=== PATIENT | female | born 1990 | race Caucasian/White ===

== ENCOUNTER 2021-11-01 20:33 | Emergency (ER) | payer MEDICAID ==
[~2021-11-01] VITALS: Ht 162.6 cm; Wt 54.0 kg
--- NOTE | 2021-11-01 21:00 | NUR ---
BIBS FOR R HAND INFECTION, SWELLING, AND PAIN X 1 WEEK. PT A/OX4. TOLERATING R/A WELL WITH NO SOB.
[2021-11-01] MEDS ORDERED: KETOROLAC TROMETHAMINE 15 MG/ML VIAL ONE (21:22)
[2021-11-01] MEDS ORDERED: CLINDAMYCIN PHOSPHATE IV 600 MG/4 ML VIAL ONE (21:22)
[2021-11-01] MEDS ORDERED: KETOROLAC TROMETHAMINE INJ 30 MG/ML VIAL IV ONE (21:30)
[2021-11-01] MEDS ORDERED: ACETAMINOPHEN 325 MG TABLET PO ONE (21:30)
[2021-11-01] MEDS ORDERED: CLINDAMYCIN IV RTU IN D5W 900 MG/50 ML PIGGYBACK IV SCH (21:30)
[2021-11-01] MEDS ORDERED: VANCOMYCIN 1 GM in IV D5W 250 ML IV ONE (21:30)
[2021-11-01] MEDS ORDERED: IV NS 0.9% 1,000 ML BAG IV ONE (21:30)
--- NOTE | 2021-11-01 21:38 | NUR ---
SHRUB GROWER AT PT'S BEDSIDE
[2021-11-01] MEDS ORDERED: ACETAMINOPHEN 325 MG TABLET ONE (21:45)
[2021-11-01] MEDS ORDERED: VANCOMYCIN 1 GM VIAL ONE (21:45)
--- NOTE | 2021-11-01 21:49 | NUR ---
PHOTO LAB TECHNICIAN AT PT'S BEDSIDE
[2021-11-01] MEDS ORDERED: LORAZEPAM INJ 2 MG/ML VIAL IV ONE (22:00)
--- NOTE | 2021-11-01 22:33 | NUR ---
ROOM SERVICE FOOD SERVER AT PT'S BEDSIDE
--- NOTE | 2021-11-01 22:33 | NUR ---
PAGED Dakota GLOVER AT [phone] FOR HAND SURGEON CONSULT
--- NOTE | 2021-11-01 22:45 | NUR ---
ATTMEPTED IV WITH NO SUCCESS; CHARGE NURSE NOTIFIED.
[2021-11-01 22:58] LABS: BASOPHILS # (AUTO) 0.1 K/uL (0.0-0.2); BASOPHILS % (AUTO) 0.6 % (0.0-2.0); EOSINOPHILS % (AUTO) 0.5 % (0.0-6.0); HEMATOCRIT 31 % (33-45); HEMOGLOBIN 10.2 g/dL (11.5-14.8); LYMPHOCYTES # (AUTO) 1.4 K/uL (0.8-4.8); LYMPHOCYTES % (AUTO) 13.5 % (20.0-44.0); MEAN CORPUSCULAR HGB CONC 33 g/dl (31.0-36.0); MEAN CORPUSCULAR VOLUME 78 fL (82-100); MONOCYTES % (AUTO) 9.9 % (2.0-12.0); NEUTROPHILS # (AUTO) 7.7 K/uL (1.8-8.9); NEUTROPHILS % (AUTO) 75.5 % (43.0-81.0); PLATELET COUNT (AUTO) 380 K/uL (150-450); RED BLOOD CELL COUNT(AUTO) 3.92 MIL/uL (4.0-5.2); WHITE BLOOD COUNT (AUTO) 10.2 K/uL (4.3-11.0)
--- NOTE | 2021-11-01 23:00 | NUR ---
CALLED [facility] ER AND SPOKE TO JANE. NO HAND SURGEON ON BOARD
[2021-11-01 23:41] LABS: ALBUMIN 3.4 g/dL (3.4-5.0); BILIRUBIN,DIRECT 0.1 mg/dL (0.0-0.2); BILIRUBIN,TOTAL 0.3 mg/dL (0.2-1.0); TOTAL PROTEIN, SERUM 7.9 g/dL (6.4-8.2)
--- NOTE | 2021-11-02 00:36 | NUR ---
CALLED [facility] TRANSFER [facility] AND SPOKE TO URI FOR POSSIBLE HIGHER LEVEL OF CARE FOR HAND SURGON. PER URI THEY'RE UNABLE TO ACCEPT ANY PT AT THIS TIME SINCE THEY'RE AT [facility]
--- NOTE | 2021-11-02 02:45 | NUR ---
called lyric franklin, no hand surgon
--- NOTE | 2021-11-02 02:58 | NUR ---
CALLED RAMSEY AT [facility]. PER RAMSEY, THEY ARE VERY TIGHT IN BED. FACE SHEET AND CLINICALS WERE FAXED OVER TO [phone]
--- NOTE | 2021-11-02 03:06 | NUR ---
REC'D A CALL FROM RAMSE[facility], NO BED AVAILABLE
--- NOTE | 2021-11-02 03:19 | NUR ---
CALLED [facility]. PER LIDIA THEY'RE AT [facility]
--- NOTE | 2021-11-02 03:21 | NUR ---
CALLED [facility] AT [phone] AND SPOKE TO MARIUSZ FOR POSSIBLE TRANSFER FOR HIGHER LOC. THEY'RE AT [facility] AND ACCEPTING ONLY [facility]
--- NOTE | 2021-11-02 04:16 | NUR ---
CALLED [facility] TRANSFER LINE AND SPOKE TO MARU FOR POSSIBLE TRANSFER. FACE SHEET AND CLINICALS WERE FAXED TO [phone]
--- NOTE | 2021-11-02 05:17 | NUR ---
REC'D A CALL FROM MARU AT [facility]; NEITHER [facility], NO [facility] HAVE HAND SPECIALIST AVAILABLE AND UNABLE TO ACCOMODATE W/ TRANSFER. [facility] ONLY ACCEPT [facility] PTs.
--- NOTE | 2021-11-02 06:07 | NUR ---
MULTIPLE ATTEMPTS TO START AN IV LINE, UNSUCCESSFUL
[2021-11-02] MEDS ORDERED: CLINDAMYCIN HCL 150 MG CAPSULE PO ONE (06:30)
--- NOTE | 2021-11-02 07:15 | NUR ---
ASSESSED PT ON BED AWAKE, AAOX4, NOT IN RESPIRATORY DISTRESS, V/S STABLE, KEPT RESTED AND COMFORTABLE. WILL CONTINUE TO MONITOR.
[2021-11-02] MEDS ORDERED: CLINDAMYCIN HCL 150 MG CAPSULE ONE (07:19)
[2021-11-02 07:53] LABS: CREATININE 0.6 mg/dL (0.6-1.3); POTASSIUM 4.2 mmol/L (3.5-5.1)
--- NOTE | 2021-11-02 08:18 | NUR ---
CALLED [facility] FOR [facility]. WILL CALL BACK FOR ETA
[2021-11-02] MEDS ORDERED: IBUP-1955 PO (08:24)
[2021-11-02] MEDS ORDERED: SULF1TAB48 PO (08:24)
[2021-11-02 09:24] VITALS: BP 128/74
--- NOTE | 2021-11-02 09:24 | NUR ---
Patient does not wish to proceed with medical care recommended by Dr. HAYES. Patient given information related to possible complications, up to and including , which could occur as a result of leaving the hospital at this time. Patient verbalizes understanding of risks involved due to leaving against medical advice. Patient has signed AMA form.
== END 2021-11-02 09:25 | disposition left against medical advice (07) ==
LOC: ER 20:42
DX: L03.113 Cellulitis of right upper limb (principal); D50.9 Iron deficiency anemia, unspecified; F19.10 Other psychoactive substance abuse, uncomplicated; S51.031S Puncture wound without foreign body of right elbow, sequela; X78.8XXS Intentional self-harm by other sharp object, sequela; F17.290 Nicotine dependence, other tobacco product, uncomplicated; Z53.29 Procedure and treatment not carried out because of patient's decision for other reasons
CPT/HCPCS: 36415 ×2; 71045; 73130; 80048; 80076; 83605; 84145; 85025; 85652; 86140; 87040 ×2; 87081; 87426; 93005; 96374; 99285; C9803; J1885; J3370; J3490; J7030; J7060